=== PATIENT | female | born 1980 | race Caucasian/White ===

== ENCOUNTER 2020-10-17 07:41 | Day surgery (SDC) | payer OTHER ==
--- NOTE | 2020-10-17 07:43 | Short Stay Summary ---
Short Stay Documentation Date of service: 10/17/20 Narrative H&P: 40-year-old -0-2-1 with a history of an incomplete . The patient had an ultrasound with findings of retained products of conception. She reports intermittent bleeding. The patient failed medical management of completion of her miscarriage. - History Principal diagnosis: Incomplete Past Medical History: other (Asthma) Past Surgical History: No surgical history Social history: - Allergies and Medications Current Medications: Allergies No Known Allergies Allergy (Unverified 10/15/20 17:48) Home Medications Medication Instructions Recorded Confirmed Last Taken Type No Known Home Medications [No 10/15/20 10/15/20 Unknown History Reported Home Medications] - Physical exam General appearance: no acute distress Integumentary: no rash HEENT: Atraumatic Lungs: Clear to auscultation Breasts: deferred Heart: Regular rate Gastrointestinal: normal Female Genitourinary: deferred Rectal Exam: deferred - Brief post op/procedure progress note Date of procedure: 10/17/20 Pre-op diagnosis: Incomplete Post-op diagnosis: same Procedure: Suction dilatation and curettage Anesthesia: LUZ Surgeon: LAZ SALCEDO Estimated blood loss: minimal Pathology: list (Products of conception) Specimen disposition: to lab Condition: stable - Hospital course Hospital course: Patient was admitted the day of surgery to undergo a suction dilatation for retained products of conception. Please see operative note for details of surgery. Her postoperative course was uneventful. - Disposition Condition at discharge: Good Disposition: [id number] TO HOME OR SELFCARE Short Stay Discharge Plan Activity: other (Pelvic rest for 1 week) Diet: regular Additional Instructions: Patient may follow-up in 2 weeks Prescriptions: Ibuprofen [Motrin] 800 mg PO Q8HR PRN #30 tablet PRN Reason: Pain , Severe (7-10) HYDROcodone/APAP 5-325 [[place] 5/325] 1 each PO Q6HR PRN #15 tablet PRN Reason: Pain
--- NOTE | 2020-10-17 08:27 | Anesthesia Day of Surgery ---
Anesthesia Day of Surgery - Day of Surgery Patient Examined: Yes Patient H&P Reviewed: Yes Patient is NPO: Yes
--- NOTE | 2020-10-17 08:28 | Anesthesia Consultation ---
Anesthesia Consult and Med Hx Date of service: 10/17/20 - Airway Anesthetic Teeth Evaluation: Good Mallampati Class: Class II Intubation Access Assessment: Good - Pre-Operative Health Status ASA Pre-Surgery Classification: ASA2 Proposed Anesthetic Plan: General - Pulmonary Hx Asthma: Yes - Central Nervous System Hx Back Pain: Yes Hx Psychiatric Problems: No - Other Systems Hx Cancer: No Hx Obesity: No - Additional Comments Anesthesia Medical History Comments: [id number] present to interpret
[2020-10-17] MEDS ORDERED: propofoL 200 MG/20 ML VIAL IV ONE (08:44)
[2020-10-17] MEDS ORDERED: fentaNYL 100 MCG/2 ML INJ ONE (08:44)
[2020-10-17] MEDS ORDERED: HYDROmorphone 1 MG/1 ML INJ IV PRN ×2 (09:00)
[2020-10-17] MEDS ORDERED: LACTATED RINGERS 1,000 ML IV SCH (09:00)
[2020-10-17] MEDS ORDERED: MIDAZOLAM 2 MG/2 ML INJ IV NR (09:00)
[2020-10-17] MEDS ORDERED: ONDANSETRON 4 MG/2 ML INJ IV PRN (09:00)
[2020-10-17] MEDS ORDERED: SODIUM CHLORIDE 0.9% IRR 1,500 ML BOTTLE IR ONE (09:21)
--- NOTE | 2020-10-17 09:27 | Operative Report ---
Operative Report Operative Report: Date of surgery: October 17, 2020 Preoperative diagnosis: Missed ; incomplete Postoperative diagnosis: Same as above Procedure: Suction dilatation and curettage; cervical polyp removal Surgeon: Elsa Rodriguez M.D. Anesthesia: Gen. endotracheal anesthesia Estimated blood loss: Minimal Findings: Products of conception; cervical polyp Indication: 40-year-old -0-2-1 with a history of a incomplete . Patient has undergone medical management however had no resolution of passage of the retained products of conception. Procedure: The patient was taken to the operating room and given general endotracheal anesthesia without complication. The patient is prepped and draped in a normal sterile fashion. A bivalve speculum was placed in the patient's vagina and a single-tooth tenaculums placed on the anterior lip of the cervix. There was noted to be a cervical polyp prolapsing through the cervical os. A ring forcep was used to excise the cervical polyp which was sent to pathology. The uterine cavity was then sounded. The cervical os was then dilated with graduated dilators. A number 8 [place] curved cannula was placed to suction and found to be adequate. The cannula was then gently inserted into the dilated cervical os. Evacuation of the uterine contents were performed. Sharp curettage and endometrial surface was performed until cry was achieved. The cannula was then gently reinserted into the uterine cavity to evacuate any additional contents. After removal of the cannula there was no evidence of any active bleeding. The vaginal instruments were then removed atraumatically. The patient was then successfully extubated and taken to the recovery room in stable condition. All sponge laps and needle counts were correct x2. Pathology consisted of products of conception.
[2020-10-17] MEDS ORDERED: ONDANSETRON 4 MG/2 ML INJ ONE (10:00)
[2020-10-17] MEDS ORDERED: LIDOCAINE MPF (2%) 20 MG/1 ML VIAL 5 ML ONE (10:00)
[2020-10-17] MEDS ORDERED: dexAMETHasone 20 MG/5 ML VIAL ONE (10:00)
[2020-10-17 14:35] VITALS: BP 109/70
--- NOTE | 2020-10-17 18:24 | Post Anesthesia Evaluation ---
- Post Anesthesia Evaluation Patient Participated: Yes Airway Patent: Yes Stable Respiratory Function: Yes Nausea/Vomiting: No Temp > 96.8F: Yes Pain Manageable: Yes Adequeate Hydration: Yes Anesthesia Complications: No Block Receding Appropriately: Not Applicable Patient on Ventilator: No
== END 2020-10-17 11:04 | disposition home or self-care (01) ==
LOC: OR 07:41
PROVIDERS: ATTEND Obstetrics & Gynecology
DX: O03.4 Incomplete spontaneous abortion without complication (principal); O02.89 Other abnormal products of conception; N84.1 Polyp of cervix uteri; J45.909 Unspecified asthma, uncomplicated; Z79.899 Other long term (current) drug therapy; Z98.890 Other specified postprocedural states
CPT/HCPCS: 59812; 88305; J1100; J2250; J2405; J2704; J3010; J7120